=== PATIENT | male | born 1960 | race Caucasian/White ===

== ENCOUNTER 2017-06-08 03:32 | Emergency (ER) | payer SELFPAY ==
[~2017-06-08] VITALS: Ht 172.7 cm; Wt 61.5 kg
[~2017-06-08 03:32] MED LIST: BUPR150XL PO; SERO100T PO
[2017-06-08 03:34] VITALS: BP 145/90; PULSE 62; RESP 16; TEMP 97.6; O2SAT 100
--- NOTE | 2017-06-08 03:54 | PD ---
HPI Chief Complaint: Injury Time Seen by Provider: 03:52 Travel History International Travel<30 days: No Contact w/Intl Traveler<30days: No Traveled to known affect area: No History of Present Illness HPI 56-year-old white male presents to emergency department with complains of left foot pain after jumping over a fence this afternoon. He states that is been walking all day on his foot. He states the pain is moderate. Worse with weightbearing. Some relief with elevation. He states the pain is in his heel and across his forefoot. He denies injury to his head, neck or back. No focal numbness, tingling or weakness. PFSH Past Medical History Asthma: No Anxiety: Yes Depression: Yes Heart Rhythm Problems: No Cancer: No Cardiac Catheterization: No Cardiovascular Problems: Yes High Cholesterol: Yes Congestive Heart Failure: No COPD: Yes Cerebrovascular Accident: No Diabetes: No Diminished Hearing: No Endocrine: No Genitourinary: Yes Headaches: No Hypertension: Yes Immune Disorder: No Implanted Vascular Access Dvce: No Kidney Stones: No Musculoskeletal: Yes (Herniated disc in back) Neurologic: No Psychiatric: Yes Reproductive: No Respiratory: Yes Immunizations Current: No Migraines: No Renal Failure: No Seizures: No Past Surgical History Abdominal Surgery: Yes (appendectomy) Appendectomy: Yes Coronary Artery Bypass Graft: No Ear Surgery: No Endocrine Surgery: No Eye Surgery: No Genitourinary Surgery: No Gynecologic Surgery: No Other Surgery: Yes Social History Alcohol Use: No Tobacco Use: Yes (2PPD) Substance Use: Yes Allergies-Medications (Allergen,Severity, Reaction): Coded Allergies: *MDRO Multi-Drug Resistant Organism (Verified Allergy, Mild, 06/08/17) MRSA + on 04/13-wound on right back. Morphine (Verified Adverse Reaction, Severe, VOMITS, 06/08/17) Per pt, he "gets a burning across his chest and then vomits". Reported Meds & Prescriptions Reported Meds & Active Scripts Active Diclofenac Sodium DR (Diclofenac Sodium) 75 Mg Tabdr 75 Mg PO BID Reported Seroquel (Quetiapine Fumarate) 100 Mg Tab 100 Mg PO HS Wellbutrin Xl 24 HR (Bupropion HCl) 150 Mg Tab 150 Mg PO DAILY Review of Systems Except as stated in HPI: all other systems reviewed are Neg Physical Exam Narrative GENERAL: This is a well-nourished, well-developed patient, in no apparent distress. SKIN: No rashes, ecchymoses or lesions. Warm and dry. HEAD: Atraumatic. Normocephalic. EYES: PERRL, EOMI, no discharge or injection. No scleral icterus. EARS: Clear NOSE: Nasal turbinates appear normal. THROAT: Mucosa pink and moist. Airway patent. NECK: Trachea midline. supple, moves head freely. LUNGS: Clear to auscultation. CV: Regular in rhythm. ABDOMEN: Soft nontender. EXT: No clubbing cyanosis or edema. Examination of the left lower extremity reveals pain in the heel, forefoot and along the fifth metacarpal. There is mild edema. No ecchymosis. Patient has intact sensation with good distal pulses. No pain in the medial lateral malleolus. No pain in the knee or hip. The right lower extremity as well as upper extremities are without localizing bony tenderness or deformity. Data Data Last Documented VS Vital Signs Date Time Temp Pulse Resp B/P Pulse Ox O2 Delivery O2 Flow Rate FiO2 06/08/17 03:52 Room Air 06/08/17 03:34 97.6 62 16 145/90 100 Orders Foot, Complete ([id number]) (06/08/17 03:50) Ice/Cold Pack (06/08/17 05:11) Splint Or Brace Apply/Monitor (06/08/17 05:11) Crutches (06/08/17 05:11) Naproxen (Naprosyn) (06/08/17 05:15) MDM Medical Decision Making Medical Screen Exam Complete: Yes Emergency Medical Condition: Yes Medical Record Reviewed: Yes Interpretation(s) Last 24 hours Impressions Foot X-Ray 06/08/17 0350 Signed Impressions: Service Date/Time: May 04:27 - CONCLUSION: Unremarkable examination of the left foot. Stuart Guevara MD Differential Diagnosis MDM: High Differential diagnoses: Fracture, sprain, strain, dislocation, contusion, neurovascular injury Narrative Course X-ray of the left foot is negative for acute fracture. Patient's given Deo wrap , crutches and Naprosyn 500 mg by mouth. This is left foot sprain Diagnosis Primary Impression: Sprain of left foot Qualified Code: S93.602A - Sprain of left foot, initial encounter Patient Instructions: General Instructions Additional Instructions: Rest. Elevation. Ice packs for the next 3 days. Deo wrap and crutches. No weight-bearing and then progress to weight-bearing as tolerated. Medications as directed Follow-up with an orthopedist or your doctor in one week. Return to the ER if any problems Med/Other Pt SpecificInfo: Prescription(s) given Scripts Diclofenac Sodium DR 75 Mg Tabdr75 Mg PO BID #20 TAB Prov:Analy Rodriguez MD 06/08/17 Disposition: 01 DISCHARGE HOME Condition: Stable Jerod Hogue Jun 08, 2017 03:54
--- NOTE | 2017-06-08 04:58 | RADRPT ---
EXAM DATE/TIME: 06/08/2017 04:27 [facility] COMPARISON: No previous studies available for comparison. INDICATIONS : Left foot pain. Patient sates he jumped over a fence and has had foot pain since. MEDICAL HISTORY : None. SURGICAL HISTORY : None. ENCOUNTER: Initial ACUITY: 1 day PAIN SCORE: 10/10 LOCATION: Left foot. FINDINGS: Three view examination of the left foot demonstrates no soft tissue swelling, dislocation, or fractur e. The tarsal bones appear intact. The interphalangeal and metatarsophalangeal joints are intact. The calcaneus is intact. Bony mineralization is normal. CONCLUSION: Unremarkable examination of the left foot. Stuart Guevara MD on June 08, 2017 at 4:57 Board Certified Radiologist. This report was verified electronically.
[2017-06-08] MEDS ORDERED: DICL75TA PO (05:13)
[2017-06-08] MEDS ORDERED: NAPROXEN 500 MG TAB PO ONE (05:15)
== END 2017-06-08 05:56 | disposition home or self-care (01) ==
LOC: NEPD 03:32
DX: S93.602A Unspecified sprain of left foot, initial encounter (principal); X58.XXXA Exposure to other specified factors, initial encounter; Y93.39 Activity, other involving climbing, rappelling and jumping off
CPT/HCPCS: 73630; 99283; E0113

== ENCOUNTER 2017-06-23 10:41 | Emergency (ER) | payer SELFPAY ==
[~2017-06-23] VITALS: Ht 175.3 cm; Wt 60.0 kg
[~2017-06-23 10:41] MED LIST changes: +DICL75TA PO
[2017-06-23 10:44] VITALS: BP 125/74; PULSE 81; RESP 15; TEMP 98.4; O2SAT 98
--- NOTE | 2017-06-23 11:06 | PD ---
HPI . left ankle pain Chief Complaint: Injury Time Seen by Provider: 11:05 Travel History International Travel<30 days: No Contact w/Intl Traveler<30days: No Traveled to known affect area: No History of Present Illness HPI 56 yr old male here with continued left ankle pain. He was seen on Jun 08, 2017 and dx with ankle sprain. He never rested his extremity. He tells me he walks all the time and now he has continued left ankle pain. He does not have a primary care provider. Patient says that he needs to get off the streets for some time. He needs some help. He is ambulatory. He tells me that he is able to walk and work daily, but that he has increased ankle pain as the day progresses. He denies any recent injury or fall. PFSH Past Medical History Asthma: No Anxiety: Yes Depression: Yes Heart Rhythm Problems: No Cancer: No Cardiac Catheterization: No Cardiovascular Problems: Yes High Cholesterol: Yes Congestive Heart Failure: No COPD: Yes Cerebrovascular Accident: No Diabetes: No Diminished Hearing: No Endocrine: No Genitourinary: Yes Headaches: No Hypertension: Yes Immune Disorder: No Implanted Vascular Access Dvce: No Kidney Stones: No Musculoskeletal: Yes (Herniated disc in back) Neurologic: No Psychiatric: Yes Reproductive: No Respiratory: Yes Immunizations Current: No Migraines: No Renal Failure: No Seizures: No Past Surgical History Abdominal Surgery: Yes (appendectomy) Appendectomy: Yes Coronary Artery Bypass Graft: No Ear Surgery: No Endocrine Surgery: No Eye Surgery: No Genitourinary Surgery: No Gynecologic Surgery: No Other Surgery: Yes Social History Alcohol Use: No Tobacco Use: Yes (2PPD) Substance Use: Yes Allergies-Medications (Allergen,Severity, Reaction): Coded Allergies: *MDRO Multi-Drug Resistant Organism (Verified Allergy, Mild, 06/08/17) MRSA + on 04/13-wound on right back. morphine (Unverified Adverse Reaction, Severe, VOMITS, 06/13/17) Per pt, he "gets a burning across his chest and then vomits". Reported Meds & Prescriptions Reported Meds & Active Scripts Active Diclofenac Sodium DR (Diclofenac Sodium) 75 Mg Tabdr 75 Mg PO BID Reported Seroquel (Quetiapine Fumarate) 100 Mg Tab 100 Mg PO HS Wellbutrin Xl 24 HR (Bupropion HCl) 150 Mg Tab 150 Mg PO DAILY Review of Systems General / Constitutional: No: Fever Eyes: No: Visual changes HENT: No: Headaches Cardiovascular: No: Chest Pain or Discomfort Respiratory: No: Shortness of Breath Gastrointestinal: No: Abdominal Pain Genitourinary: No: Dysuria Musculoskeletal: Positive: Pain (left ankle) Skin: No Rash Neurologic: No: Weakness Psychiatric: No: Depression Endocrine: No: Polydipsia Hematologic/Lymphatic: No: Easy Bruising Physical Exam Narrative GENERAL: AAO x 3, no acute distress, Well-nourished, well-developed patient. SKIN: Warm and dry. No visible rashes or bruising. HEAD: Normocephalic and atraumatic. EYES: No scleral icterus. No injection or drainage. EOM intact, PERRLA ENT: No nasal drainage noted. Mucous membranes pink. Airway patent. NECK: Supple, trachea midline. No JVD. CARDIOVASCULAR: Regular rate and rhythm without murmurs, gallops, or rubs. RESPIRATORY: Breath sounds equal bilaterally. No accessory muscle use. No rhonchi or rales. GASTROINTESTINAL: Visual inspection normal EXTREMITIES: Mild edema to the lateral malleolus of the left ankle, dorsiflexion and plantar flexion normal. Patient can move the ankle normally without any abdomen bowel he. He is ambulatory. No significant point tenderness BACK: Nontender without obvious deformity. No CVA tenderness. NEURO: Grossly intact PSYCH: AAO x 3, normal affect. Data Data Last Documented VS Vital Signs Date Time Temp Pulse Resp B/P (MAP) Pulse Ox O2 Delivery O2 Flow Rate FiO2 06/23/17 10:44 98.4 81 15 125/74 (91) 98 MDM Medical Decision Making Medical Screen Exam Complete: Yes Emergency Medical Condition: No Medical Record Reviewed: Yes Differential Diagnosis left ankle sprain, less likely fracture, less likely dislocation Narrative Course A medical screening exam was performed: At the time of evaluation the presenting medical condition was determined not to be of an emergent nature. The patient was given the option of receiving additional care, but declined. Patient was given options for additional community resources from which to obtain care. The Patient Has Been advised to seek medical attention for their presenting complaint. The patient has been advised to return to the ER at any time if an emergent condition develops. Discussed [facility] with patient. Diagnosis Primary Impression: Encounter for medical screening examination Condition: Stable Lauren Maria Jun 23, 2017 11:06
== END 2017-06-23 11:25 | disposition left against medical advice (07) ==
LOC: NEPK 10:41
DX: M25.572 Pain in left ankle and joints of left foot (principal); R60.9 Edema, unspecified; F41.9 Anxiety disorder, unspecified; F32.9 Major depressive disorder, single episode, unspecified; E78.00 Pure hypercholesterolemia, unspecified; J44.9 Chronic obstructive pulmonary disease, unspecified; I10 Essential (primary) hypertension; F17.200 Nicotine dependence, unspecified, uncomplicated; Z79.899 Other long term (current) drug therapy
CPT/HCPCS: 99281

== ENCOUNTER 2017-07-06 03:47 | Emergency (ER) | payer OTHER ==
[~2017-07-06] VITALS: Ht 172.7 cm; Wt 60.0 kg
[2017-07-06] MEDS ORDERED: TETANUS/DIPHTHERIA TOXOID ADULT 0.5 ML VIAL IM ONE (04:15)
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
[2017-07-06 04:50] LABS: AUTOMATED NEUTROPHIL # 6.5 TH/MM3 (1.8-7.7); BASOPHIL # 0.1 TH/MM3 (0-0.2); BASOPHIL % 1.2 % (0.0-2.0); EOSINOPHIL # 0.2 TH/MM3 (0-0.4); HEMATOCRIT 36.6 % (39.0-51.0); HEMO FLAGS DIFF FINAL; LYMPH % 22.8 % (9.0-44.0); LYMPHOCYTE # 2.2 TH/MM3 (1.0-4.8); MEAN CELL VOLUME 95.2 FL (80.0-100.0); MEAN CORPUSCULAR HEMOGLOBIN 32.6 PG (27.0-34.0); MEAN CORPUSCULAR HGB CONC 34.2 % (32.0-36.0); MONO % 6.6 % (0.0-8.0); NEUT % 67.4 % (16.0-70.0); PLATELET COUNT 374 TH/MM3 (150-450); RED BLOOD COUNT 3.84 MIL/MM3 (4.50-5.90); RED CELL DISTRIBUTION WIDTH 13.9 % (11.6-17.2); WHITE BLOOD COUNT 9.6 TH/MM3 (4.0-11.0)
[2017-07-06 05:01] LABS: ANION GAP 7 MEQ/L (5-15); BICARBONATE 26.6 MEQ/L (21.0-32.0); BLOOD UREA NITROGEN 21 MG/DL (7-18); CHLORIDE 104 MEQ/L (98-107); GLOMERULAR FILTRATION RATE 67 ML/MIN (>89); POTASSIUM 3.9 MEQ/L (3.5-5.1); SODIUM (NA) 138 MEQ/L (136-145)
[2017-07-06 05:17] LABS: ALCOHOL LESS THAN 3 MG/DL (0-5)
[2017-07-06 06:31] VITALS: BP 167/87; PULSE 56; RESP 18; TEMP 98.8; O2SAT 98
[2017-07-06 11:11] VITALS: BP 169/84; PULSE 65; RESP 16; O2SAT 97
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
--- NOTE | 2017-07-06 12:51 | PD ---
Data Data Last Documented VS Vital Signs Date Time Temp Pulse Resp B/P (MAP) Pulse Ox O2 Delivery O2 Flow Rate FiO2 07/06/17 12:32 07/06/17 11:11 65 16 97 Room Air 07/06/17 06:31 98.8 Orders Orders Complete Blood Count With Diff (07/06/17 04:13) Basic Metabolic Panel (Bmp) (07/06/17 04:13) Psych Screen (07/06/17 04:13) Drug Screen, Random Urine (07/06/17 04:13) Alcohol (Ethanol) (07/06/17 04:13) Tetanus/Diphtheria Tox Adult (Tetanus/Di (07/06/17 04:15) Wound Care (07/06/17 04:13) Diet Regular Basic (07/06/17 Breakfast) Diet Regular Basic (07/06/17 Lunch) Labs Laboratory Tests Test 07/06/17 04:18 07/06/17 11:15 White Blood Count 9.6 TH/MM3 Red Blood Count 3.84 MIL/MM3 Hemoglobin 12.5 GM/DL Hematocrit 36.6 % Mean Corpuscular Volume 95.2 FL Mean Corpuscular Hemoglobin 32.6 PG Mean Corpuscular Hemoglobin Concent 34.2 % Red Cell Distribution Width 13.9 % Platelet Count 374 TH/MM3 Mean Platelet Volume 7.5 FL Neutrophils (%) (Auto) 67.4 % Lymphocytes (%) (Auto) 22.8 % Monocytes (%) (Auto) 6.6 % Eosinophils (%) (Auto) 2.0 % Basophils (%) (Auto) 1.2 % Neutrophils # (Auto) 6.5 TH/MM3 Lymphocytes # (Auto) 2.2 TH/MM3 Monocytes # (Auto) 0.6 TH/MM3 Eosinophils # (Auto) 0.2 TH/MM3 Basophils # (Auto) 0.1 TH/MM3 CBC Comment DIFF FINAL Differential Comment Blood Urea Nitrogen 21 MG/DL Creatinine 1.14 MG/DL Random Glucose 87 MG/DL Calcium Level 9.8 MG/DL Sodium Level 138 MEQ/L Potassium Level 3.9 MEQ/L Chloride Level 104 MEQ/L Carbon Dioxide Level 26.6 MEQ/L Anion Gap 7 MEQ/L Estimat Glomerular Filtration Rate 67 ML/MIN Ethyl Alcohol Level LESS THAN 3 MG/DL Urine Opiates Screen NEG Urine Barbiturates Screen NEG Urine Amphetamines Screen NEG Urine Benzodiazepines Screen NEG Urine Cocaine Screen POS Urine Cannabinoids Screen NEG MDM Supervised Visit with SHWETA: No Diagnosis Primary Impression: Cocaine abuse Additional Impression: Adjustment disorder with mixed disturbance of emotions and conduct Patient Instructions: General Instructions Additional Instruction: Follow up with Yevgeniy Gilliam in regards to psychiatric or substance related issues at: [address] [place] [address] Med/Other Pt SpecificInfo: No Change to Meds Disposition: 01 DISCHARGE HOME Condition: Stable Dorothy Dempsey MD Jul 06, 2017 12:51
== END 2017-07-06 14:10 | disposition home or self-care (01) ==
LOC: NEPD 03:47 → NEPJ 14:10
DX: F14.14 Cocaine abuse with cocaine-induced mood disorder (principal); F43.25 Adjustment disorder with mixed disturbance of emotions and conduct
CPT/HCPCS: 80048; 80307; 85025; 90471

== ENCOUNTER 2017-07-19 22:15 | Emergency (ER) | payer SELFPAY ==
[~2017-07-19] VITALS: Ht 165.1 cm; Wt 70.0 kg
[2017-07-19 22:26] VITALS: BP 159/85; PULSE 79; RESP 16; TEMP 98.3; O2SAT 96
[2017-07-19 23:00] VITALS: BP 178/106; PULSE 76; RESP 18; O2SAT 99
[2017-07-19] MEDS ORDERED: SODIUM CHLOR 0.9% 1000 ML INJ 1,000 ML IV SCH (23:07)
[2017-07-19] MEDS ORDERED: ONDANSETRON HCL 4 MG/2 ML VIAL IVP ONE (23:15)
[2017-07-19] MEDS ORDERED: SODIUM CHLORIDE 0.9% FLUSH 10 ML FLUSH IVF PRN (23:15)
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
[2017-07-19 23:31] LABS: AUTOMATED NEUTROPHIL # 10.6 TH/MM3 (1.8-7.7); BASOPHIL # 0.1 TH/MM3 (0-0.2); BASOPHIL % 0.9 % (0.0-2.0); EOSINOPHIL # 0.1 TH/MM3 (0-0.4); EOSINOPHIL % 0.7 % (0.0-4.0); HEMO FLAGS DIFF FINAL; LYMPHOCYTE # 2.4 TH/MM3 (1.0-4.8); MEAN CELL VOLUME 96.1 FL (80.0-100.0); MEAN CORPUSCULAR HEMOGLOBIN 31.4 PG (27.0-34.0); MEAN CORPUSCULAR HGB CONC 32.7 % (32.0-36.0); MONO % 7.4 % (0.0-8.0); PLATELET COUNT 313 TH/MM3 (150-450); RED BLOOD COUNT 3.75 MIL/MM3 (4.50-5.90); RED CELL DISTRIBUTION WIDTH 14.2 % (11.6-17.2); WHITE BLOOD COUNT 14.3 TH/MM3 (4.0-11.0)
[2017-07-19 23:41] LABS: PROTHROMBIN TIME - PATIENT 11.2 SEC (9.8-11.6)
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
--- NOTE | 2017-07-19 23:57 | RADRPT ---
EXAM DATE/TIME: 07/19/2017 23:41 [facility] COMPARISON: CHEST PA & LAT, May 20, 2015, 14:04. INDICATIONS : Chest pain. MEDICAL HISTORY : Chronic obstructive pulmonary disease. SURGICAL HISTORY : None. ENCOUNTER: Initial ACUITY: 1 day PAIN SCORE: 4/10 LOCATION: Bilateral chest FINDINGS: A single view of the chest demonstrates the lungs to be symmetrically aerated without evidence of mas s, infiltrate or effusion. The cardiomediastinal contours are unremarkable. Osseous structures are intact. CONCLUSION: No acute disease. Jose M Meyers Jr., MD on July 19, 2017 at 23:55 Board Certified Radiologist. This report was verified electronically.
[2017-07-20] LABS: BICARBONATE 25.9 MEQ/L (21.0-32.0)
[2017-07-20 00:08] LABS: POTASSIUM 4.3 MEQ/L (3.5-5.1)
[2017-07-20] MEDS ORDERED: KETOROLAC TROMETHAMINE 30 MG/ML (IVP) VIAL IV PUSH ONE (01:00)
[2017-07-20 01:06] VITALS: BP 163/82; PULSE 72; RESP 16; O2SAT 99
[2017-07-20 01:56] VITALS: BP 139/76; PULSE 76; RESP 14; O2SAT 98
--- NOTE | 2017-07-20 17:15 | EKG ---
Date Performed: 07/19/2017 Time Performed: 23:18:48 PTAGE: 56 years EKG: Sinus rhythm NORMAL ECG PREVIOUS TRACING : 10/07/2015 20.14 Compared to the previous tracing, IRBBB no longer noted DOCTOR: Noman Mireles Interpretating Date/Time 07/20/2017 17:15:26
== END 2017-07-20 02:04 | disposition home or self-care (01) ==
LOC: NEPE 22:15
DX: S06.0X9A Concussion with loss of consciousness of unspecified duration, initial encounter (principal); S09.90XA Unspecified injury of head, initial encounter; J44.9 Chronic obstructive pulmonary disease, unspecified; R11.0 Nausea; I10 Essential (primary) hypertension; Y04.0XXA Assault by unarmed brawl or fight, initial encounter; Z72.0 Tobacco use
CPT/HCPCS: 70450; 71010; 72125; 80048; 85025; 85610; 85730; 93005; 96361; 96374; 96375; 99285; J1885; J2405; J7030